=== PATIENT | male | born 1945 | race Caucasian/White ===

== ENCOUNTER 2019-02-16 17:01 | Emergency (ER) | payer MEDICARE ==
[2019-02-16 17:41] LABS: #Basophils 0.1 thou/uL (0.0-0.2); #Lymphocytes 0.4 thou/uL (1.20-3.40); #Monocytes 0.9 thou/uL (0.11-0.59); #Neutrophils 13.9 thou/uL (1.40-6.50); %Basophils 0.7 % (0.0-1.0); %Eosinophils 0.1 % (0.0-10.0); %Lymphocytes 2.7 % (21.0-51.0); %Neutrophils 90.5 % (42.0-75.0); Hemoglobin 11.9 g/dL (14.0-18.0); Mean Corpuscular HGB CONC 33.6 g/dL (32.0-36.0); Mean Corpuscular Hemoglobin 28.1 pg (27.0-31.0); Mean Corpuscular Volume 83.6 fL (78.0-98.0); Mean Platelet Volume 5.2 fL (7.4-10.4); Platelet Count 309 thou/uL (130-400); RBC Distribution Width 14.5 % (11.5-14.5); Red Blood Cell (RBC) Count 4.22 mill/uL (4.70-6.10); White Blood Cell (WBC) Count 15.3 thou/uL (4.8-10.8)
[2019-02-16] MEDS ORDERED: Piperacillin/Tazobactam 4.5 GM VIAL ONE (17:42)
[2019-02-16] MEDS ORDERED: Acetaminophen 500 MG TAB ONE (17:42)
[2019-02-16 17:43] LABS: INR-International Normal Ratio 1.1; Prothrombin Time 14.6 SEC (12.0-14.7)
[2019-02-16 17:44] LABS: PTT 34.9 SEC (22.9-36.1)
[2019-02-16] MEDS ORDERED: Sodium Chloride 0.9% 100 ML ONE ×2 (17:47→17:50)
[2019-02-16 17:53] LABS: ALT (SGPT) Less than 7 U/L (8-55); AST (SGOT) 20 U/L (5-34); Albumin 3.4 g/dL (3.4-4.8); Alkaline Phosphatase 115 U/L (40-110); Anion Gap 14 mmol/L (10-20); BUN (Urea Nitrogen) 13 mg/dL (8.4-25.7); Base Excess-Venous -0.4 mmol/L (-2.0 to 3.0); Bicarbonate (HCO3v) 24.1 mmol/L (22.0-28.0); Bilirubin, Total 0.7 mg/dL (0.2-1.2); CK (CPK) 82 U/L (30-200); CO2 Tension (PvCO2) 38.1 mmHg (40.0-50.0); Calc. Creatinine Clearance 0 mL/min (70-130); Calcium 8.8 mg/dL (7.8-10.44); Calcium, Ionized 1.06 mmol/L (See Comments:); Carbon Dioxide 23 mmol/L (23-31); Chloride 89 mmol/L (98-107); Chloride 90 mmol/L (98-107); Estimated GFR-MDRD Greater than 90; Globulin 4.9 g/dL (2.4-3.5); Glucose 108 mg/dL (83-110); Hemoglobin - Calc 12.7 g/dL (14.0-18.0); Magnesium 1.7 mg/dL (1.6-2.6); Potassium 4.3 mmol/L (3.5-5.1); Potassium 4.4 mmol/L (3.5-5.1); Protein, Total 8.3 g/dL (5.8-8.1); Sodium 122 mmol/L (136-145); Sodium 122 mmol/L (138-145); T. Carbon Dioxide 25.3 mmol/L (22.0-28.0); vO2 Saturation-calc 86.8 % (60.0-85.0)
--- NOTE | 2019-02-16 18:03 | CT ---
CT BRAIN NONCONTRAST: DATE: 02/16/2019 HISTORY: 73-year-old male with altered mental status. FINDINGS: There is no evidence of acute intra-axial or extra-axial hemorrhage. There is no midline shift or any other mass effect. There is no extra-axial fluid collection. There is no evidence of obstructive hydrocephalus. Calvarium is intact. There is diffuse brain parenchymal volume loss. There are low att enuation areas in the white matter. These are nonspecific, but in a patient of this age, they are probably chronic ischemic white matter changes due to microvascular atherosclerosis. Tiny old lacunar at head of right caudate. Tiny old lacunar at right thalamus. IMPRESSION: 1) No acute intracranial findings. 2) involutional changes and chronic ischemic white matter changes. 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
--- NOTE | 2019-02-16 18:40 | RAD ---
PORTABLE CHEST: Date: 02/16/19 HISTORY: Fever. Hypoxia. COMPARISON: 04/10/14. FINDINGS: There is confluent infiltrate in the right upper lung medially in the suprahilar region. Interstitial and possibly hazy alveolar infiltrate in both lung bases. Mild vascular engorgement. Heart size within normal range. IMPRESSION: Focal infiltrate or mass density in the medial right upper lung, suprahilar region. Interstitial and hazy infiltrate in both lung bases. Close follow-up recommended. POS: [facility]
== END 2019-02-16 19:08 | disposition short-term general hospital (02) ==
LOC: BURERS 17:01
DX: A41.9 Sepsis, unspecified organism (principal); J18.9 Pneumonia, unspecified organism; J44.1 Chronic obstructive pulmonary disease with (acute) exacerbation; F03.90 Unspecified dementia, unspecified severity, without behavioral disturbance, psychotic disturbance, mood disturbance, and anxiety; F17.210 Nicotine dependence, cigarettes, uncomplicated; Z86.73 Personal history of transient ischemic attack (TIA), and cerebral infarction without residual deficits
CPT/HCPCS: 70450; 71045; 80053; 82330; 82550; 82803; 83605; 83735; 83880; 84443; 84484; 85025; 85610; 85730; 87040; 87804; 93005; 94640; 94760; 96365; A4353; J2543; J3370; J3490; J7620